=== PATIENT | female | born 1995 | race Caucasian/White ===

== ENCOUNTER 2022-01-02 14:20 | Inpatient (IN) | payer MEDICAID ==
[~2022-01-02] VITALS: Ht 163.8 cm; Wt 141.4 kg
[~2022-01-02 14:20] MED LIST: ZOFRAN ODT4 MG PO
[2022-01-05] VITALS (8 sets, daily range): BP systolic 107–134; BP diastolic 54–68; PULSE 72–86; TEMP 98.1
--- NOTE | 2022-01-05 19:05 | NUR ---
1904- PATIENT AND SPOUSE AMBULATORY TO THE UNIT. ORIENTATED TO ROOM AND CHANGED INTO PERSONAL LABOR GOWN. PATIENT REPORTS GFM, IRREGULAR CONTRACTIONS AND DENIES LOF OR BLEEDING. PATIENT OF DR. LOZA WHO IS A AT 38.5 HERE FOR A CYTOTEC INDUCTION. PLAN OF CARE DISCUSSED. 1910- EFM AND TOCO ON AND TRACING. VITALS TAKEN, ASSESSMENT COMPLETED. 1929- CONSENTS SIGNED 1944- IV STARTED IN LEFT FOREARM BY THIS RN. 2002- SVE FINGERTIP/50/-3 AND CYTOTEC 25MCG PLACED AT THIS TIME. PATIENT DENIES FURTHER NEEDS. CALL LIGHT WITHIN REACH.
[2022-01-05 20:08] LABS: BASO % 0.3 % (0.0-2.0); EOS # 0.1 K/mm3 (0.0-0.7); EOS % 0.5 % (0.0-4.0); GRAN # 7.9 K/mm3 (1.4-6.5); GRAN % 68.1 % (42.2-75.2); HEMOGLOBIN 11.4 g/dl (12.5-16.0); LYMPH # 2.8 K/mm3 (1.2-3.4); LYMPH % 24.2 % (20.0-51.0); MEAN CELL VOLUME 81 fl (80.0-100.0); MEAN CORPUSCULAR HEMOGLOBIN 26 pg (27-31); MEAN CORPUSCULAR HGB CONC 32 g/dl (33.0-37.0); MEAN PLATELET VOLUME 10.3 fl (7.4-10.4); MONO # 0.8 K/mm3 (0.1-0.6); MONO % 6.6 % (1.7-9.3); PLATELET COUNT 223 K/mm3 (130-400); RED BLOOD COUNT 4.42 M/mm3 (4.10-5.30); REDCELL DISTRIBUTION WIDTH-CV 16.7 % (11.5-14.5)
[2022-01-05 20:09] LABS: HEMATOCRIT 35.7 % (37.0-47.0)
[2022-01-05] MEDS ORDERED: NATURAL MAGNES200 MG PO (20:33)
[2022-01-05] MEDS ORDERED: PRENATAL TABLET PO (20:33)
[2022-01-05] MEDS ORDERED: BENADRYL25 M2 PO (20:34)
[2022-01-05] MEDS ORDERED: VISTARIL 2525 MG/CAP PO (20:35)
[2022-01-05] MEDS ORDERED: LEXAPRO20 MG PO (20:35)
[2022-01-05] MEDS ORDERED: NORMODYNE100 MG PO (20:36)
[2022-01-05] MEDS ORDERED: NEXIUM 20MG20 MG PO (20:36)
[2022-01-05] MEDS ORDERED: GLUCOPHAGE1000 MG PO (20:36)
[2022-01-06] VITALS (74 sets, daily range): BP systolic 97–197; BP diastolic 53–98; PULSE 60–133; TEMP 97.6–99.7
--- NOTE | 2022-01-06 03:45 | NUR ---
PATIENT TAKEN OFF MONITORS TO STRETCH, GET READY FOR THE DAY AND EAT SOMETHING LIGHT BEFORE STARTING PITOCIN. PATIENT AMBULATING THE HALLS. DENIES FURTHER NEEDS.
--- NOTE | 2022-01-06 06:20 | NUR ---
This RN receives bedside report via Maria Luz MARX. Patient has no needs at this time. Plan of care discussed. Difficulty tracing contractions due to maternal position. 0648: Patient voids. 0655: Dr. Cherry at bedside and assessing patient and FHR strip. SVE-2/70/-2 and AROM with clear fluid noted. Patient agrees with internal monitoring. 0700: IUPC placed and explained. FSE placed and patient tolerates well. 0820: Patient on birthing ball. 0930: Patient requests epidural and T.Jeffry [employer]. 1000: Patient sitting up for epidural, T.[place] [employer] at bedside. Plan of care discussed. 1013: Test dose given and patient tolerates well. 1055: Haji catheter placed and patient tolerates well. SVE 2-3/70/-2. Patient repositioned 1130: Dr. Cherry at bedside and SVE 2-3/70/-2. 1145: IUPC falls out and removed. TOCO back on abdomen. Patient not comfortable with epidural and T[employer] [employer] notified.
--- NOTE | 2022-01-06 12:30 | NUR ---
Patient sitting up to replace epidural. Tracy SANTO at bedside. 1250: Test dose given and patient tolerates well. 1305: Dr. Cherry at bedside and SVE-3/70/-2 and places IU. Patient comfortable with epidural. 1600: Dr. Cehrry at bedside and SVE 3/70/-2 and patient to josé miguel position. Plan of care discussed and will revaluate at 1800. 1745: Dr. Cherry at bedside and SVE-3/70/-2 and caput noted and plan of care discussed. Patient agrees with csection and pitocin off at this time. Plan of care discussed and questions answered. Patient prepped for surgery. 1815: Yanick MARX given report and assumes care of patient.
[2022-01-07 04:59] VITALS: BP 150/80; PULSE 72; TEMP 98.7
[2022-01-07 07:15] VITALS: BP 116/72; PULSE 68; TEMP 97.8
[2022-01-07] MEDS ORDERED: ROXICODONE 55 MG/TAB PO (10:21)
[2022-01-07] MEDS ORDERED: IBU800 M1 PO (10:21)
[2022-01-07 11:00] VITALS: BP 116/53; PULSE 74; TEMP 978.4
[2022-01-07 16:10] VITALS: BP 130/76; PULSE 72; TEMP 97.4
[2022-01-07 20:00] VITALS: BP 141/74; PULSE 73; TEMP 97.3
[2022-01-08 09:52] VITALS: BP 143/74; PULSE 86; TEMP 97.6
== END 2022-01-08 13:30 | disposition home or self-care (01) | DRG 786 ==
LOC: LDR → OB 01-06 22:00
PROVIDERS: ADMIT Obstetrics & Gynecology
PROC: 3E0P7VZ Introduction of Hormone into Female Reproductive, Via Natural or Artificial Opening (ICD-10-PCS; 2022-01-05)
PROC: 3E033VJ Introduction of Other Hormone into Peripheral Vein, Percutaneous Approach (ICD-10-PCS; 2022-01-05)
PROC: 10D00Z1 Extraction of Products of Conception, Low, Open Approach (ICD-10-PCS; principal; 2022-01-06)
PROC: 10907ZC Drainage of Amniotic Fluid, Therapeutic from Products of Conception, Via Natural or Artificial Opening (ICD-10-PCS; 2022-01-06)
DX: O10.02 Pre-existing essential hypertension complicating childbirth (principal); O24.12 Pre-existing type 2 diabetes mellitus, in childbirth; O62.0 Primary inadequate contractions; O99.344 Other mental disorders complicating childbirth; F41.9 Anxiety disorder, unspecified; F32.A Depression, unspecified; O99.213 Obesity complicating pregnancy, third trimester; E66.01 Morbid (severe) obesity due to excess calories; O99.820 Streptococcus B carrier state complicating pregnancy; E11.8 Type 2 diabetes mellitus with unspecified complications; O99.824 Streptococcus B carrier state complicating childbirth; O69.2XX0 Labor and delivery complicated by other cord entanglement, with compression, not applicable or unspecified; O69.1XX0 Labor and delivery complicated by cord around neck, with compression, not applicable or unspecified; Z3A.38 38 weeks gestation of pregnancy; Z37.0 Single live birth; Z79.84 Long term (current) use of oral hypoglycemic drugs
CPT/HCPCS: J0690; J1200; J1885; J2405; J2590; J7120